=== PATIENT | female | born 1985 | race Caucasian/White ===

== ENCOUNTER 2017-02-22 07:05 | Inpatient (IN) | payer SELFPAY ==
[2017-02-22] MEDS ORDERED: LR / Pitocin 40 units/1000 ml 0 ML ONE ×2 (07:39→07:40)
[2017-02-22] MEDS ORDERED: Lidocaine 1% (PF) 30 ML VIAL ONE (07:40)
[2017-02-22] MEDS ORDERED: LR / Pitocin 40 units/1000 ml 1,000 ML ONE (08:01)
[2017-02-22] MEDS ORDERED: LR / Pitocin 40 units/1000 ml 1,000 ML IV PRN (08:48)
[2017-02-22] MEDS ORDERED: Lidocaine 1% (PF) 30 ML VIAL SC PRN (08:48)
[2017-02-22] MEDS ORDERED: HYDROcodone/Acetaminophen 5/325 mg Tablet PO PRN ×4 (08:48→11:55)
[2017-02-22] MEDS ORDERED: Ibuprofen 800 MG TAB PO PRN (08:48)
--- NOTE | 2017-02-22 08:48 | PDOC.OPDEL ---
OB Operative/Delivery Note Delivery Dr/Surgeon: Edmond Arauz CNM Pre-Delivery Diagnosis: active labor Procedure/Post Delivery Dx: spontaneous vaginal delivery Weeks gestation: 41 Anesthesia: none - Findings A Sex: male Weight: 8 lb 10 oz - 5 min: 9 - 10 min: 9 - Additional Findings/Plan Placenta delivered: spontaneous Repaired Obstetrical Laceration: 2nd degree (and left labial) Estimated blood loss: 200 Compilations/Other Findings: delivered in Hand and knees compound delivery with bilateral hands and elbows Delayed cord clamping 3 mins. Immediate skin to skin Post delivery plan: routine recovery
--- NOTE | 2017-02-22 08:48 | PDOC.LDHP ---
Labor and Delivery H&P Chief complaint: contractions HPI: Pt started juli around 0545. Denies LOF or VB. Contractions were every 2 mins for 45 second and very intense. Catrina contacted CNM via text and was instructed to go the [facility]. Current gestational age (weeks): 41 Dating criteria: last menstrual period Grav: 1 Para: 0 Current complications: other (post dates) Abnormal US findings: No Current medications: pre- vitamins, other (Prilosec, stool softener) Previous surgical history: other (wisdom teeth extraction 2006) Allergies/Adverse Reactions: Allergies Allergy/AdvReac Type Severity Reaction Status Date / Time No Known Allergies Allergy Verified 02/22/17 09:05 Social history: none - Physical Exam Vital signs reviewed and normal: yes General: breathing through contractions Heart: RRR Lungs: CTAB Abdomen: gravid Extremeties: trace edema FHT: category 1 (by doppler. No decelerations auscultated) [place] contractions every: palpated Q1-2 min - Vaginal Exam cm dilated: 10 Effacement: 100% Station: 2+ - OB Labs Blood type: O RH: positive HIV: negative RPR: negative HEPSAg: negative 1 hour GCT: negative 3 hour GTT: unknown GBS: negative Urine drug screen: not done - Assessment L&D Assessment: term patient in labor - Plan Plan: admit to L&D -: Admit for L&D
[2017-02-22 08:51] VITALS: BMI 26.2
[2017-02-22] MEDS ORDERED: Oxytocin 10 UNITS/ML VIAL IM SCH (09:00)
[2017-02-22 09:05] LABS: Hematocrit 41.1 % (36.0-47.0); Mean Platelet Volume 9.5 fL (7.4-10.4); Red Blood Cell (RBC) Count 4.22 mill/uL (4.20-5.40); White Blood Cell (WBC) Count 12.4 thou/uL (4.8-10.8)
[2017-02-22] MEDS ORDERED: LR / Pitocin 40 units/1000 ml 1,000 ML IV SCH (11:55)
[2017-02-22] MEDS ORDERED: Milk Of Magnesia 30 ML UDCUP PO PRN (11:55)
[2017-02-22] MEDS ORDERED: Adacel (T-DAP) 0.5 ML VIAL IM ONE (11:55)
[2017-02-22] MEDS ORDERED: Measles/Mumps/Rubella 10 MCG/0.5 ML VIAL SC ONE (11:55)
[2017-02-22] MEDS ORDERED: Bisacodyl 10 MG SUPP PR PRN (11:55)
[2017-02-22] MEDS ORDERED: Lanolin Ointment 7 GM TUBE TOP PRN (11:55)
[2017-02-22] MEDS ORDERED: Benzocaine/Menthol 20-0.5% 60 ML CAN TOP PRN (11:55)
[2017-02-22] MEDS ORDERED: Docusate (Surfak) 240 MG CAP PO SCH (12:15)
[2017-02-22] MEDS ORDERED: Prenatal Vitamin 1 TAB PO SCH (12:15)
[2017-02-22] MEDS: Ferrous Sulfate 325 MG TAB PO SCH (19:18)
[2017-02-22] MEDS: Ibuprofen 800 MG TAB PO SCH ×2 (19:20→21:19)
[2017-02-22] MEDS: Docusate (Surfak) 240 MG CAP PO SCH (21:19)
[2017-02-23 06:14] LABS: Hematocrit 34.1 % (36.0-47.0); Red Blood Cell (RBC) Count 3.41 mill/uL (4.20-5.40); White Blood Cell (WBC) Count 13.4 thou/uL (4.8-10.8)
[2017-02-23] MEDS: Ibuprofen 800 MG TAB PO SCH ×2 (06:25→13:47)
[2017-02-23 08:50] VITALS: BP 97/49; TEMP 98.2
[2017-02-23] MEDS ORDERED: Prenatal Vitamin 1 TAB PO SCH (09:00)
[2017-02-23] MEDS: Ferrous Sulfate 325 MG TAB PO SCH ×2 (09:21→18:15)
[2017-02-23] MEDS: Docusate (Surfak) 240 MG CAP PO SCH (09:22)
--- NOTE | 2017-02-23 13:55 | PDOC.PP ---
Post Progress Note Post Day #: 1 -: pt is sore, breast feeding is going "ok" pt is traumatized by her PO intake tolerated: yes Flatus: yes Ambulation: yes Vital Signs (12 hours) Temp Pulse Resp BP 02/23/17 08:49 98.2 F 60 18 97/49 L 02/23/17 08:00 98.2 F 60 18 02/23/17 04:38 98.0 F 56 L 16 109/58 L Weight Weight 178 lb - Physical Examination General: NAD Cardiovascular: no m/r/g, RRR Respiratory: clear to ausculation bilateral Abdominal: + bowel sounds, lochia (moderate) Fundus firm & at: +2 and right deviation. Pt instructed to get up to restroom and urinate. Extremities: negative homans (B) Skin: no rash Neurological: no gross focal deficits Psychiatric: A&Ox3 Deviation from normal: teary when discussing her story Result Diagrams: 02/23/17 05:42 Additional Labs: Post Labs Hep Bs Antigen Non-Reactive S/CO (NonReactive) 02/22/17 07:30 (1) (spontaneous vaginal delivery) Code(s): O80 - ENCOUNTER FOR FULL-TERM UNCOMPLICATED DELIVERY Status: Acute (2) Perineal laceration during delivery Code(s): O70.9 - PERINEAL LACERATION DURING DELIVERY, UNSPECIFIED Status: Acute (3) Precipitate labor, delivered, current hospitalization Code(s): O62.3 - PRECIPITATE LABOR Status: Acute - Assessment/Plan A: G1 now P1 post day #1 s/p over 2degree repaired perineal laceration. fundus is elevated and with right obliquity. Nipple soreness P: See note NML OB exam. Plan for discharge home today if infant is discharged.
== END 2017-02-23 18:55 | disposition home or self-care (01) | DRG 775 ==
LOC: L&D/OP 07:05 → L&D-LIB 07:21 → 3SW 11:18
PROVIDERS: ADMIT Student in an Organized Health Care Education/Training Program; ATTEND Student in an Organized Health Care Education/Training Program
PROC: 10E0XZZ Delivery of Products of Conception, External Approach (ICD-10-PCS; principal; 2017-02-22)
PROC: 0KQM0ZZ Repair Perineum Muscle, Open Approach (ICD-10-PCS; 2017-02-22)
DX: O70.1 Second degree perineal laceration during delivery (principal); Z37.0 Single live birth; O48.0 Post-term pregnancy; Z3A.41 41 weeks gestation of pregnancy; O62.3 Precipitate labor
CPT/HCPCS: 36415; 85027; 86780; 87340; J2001